=== PATIENT | male | born 1980 | race Caucasian/White ===

== ENCOUNTER 2023-08-19 22:40 | Emergency (ER) | payer SELFPAY ==
[2023-08-19 22:43] VITALS: BP 134/81; PULSE 81; RESP 16; TEMP 36.8; O2SAT 98; BMI 22.4
--- NOTE | 2023-08-19 23:01 | XRR_ITS ---
PROCEDURE INFORMATION: Exam: XR Lumbosacral Spine Exam date and time: 08/19/2023 11:05 PM Age: 43 years old Clinical indication: Other: Pain; Additional info: Atraumatic low back pain x2 days TECHNIQUE: Imaging protocol: Radiologic exam of the lumbosacral spine. Views: 2 or 3 views. COMPARISON: No relevant prior studies available. FINDINGS: Bones/joints: Normal. No acute fracture. Normal alignment. Soft tissues: Unremarkable. XR/XR lumbar spine 2-3V* [id number] IMPRESSION: No acute findings.
--- NOTE | 2023-08-19 23:03 | W.ED.BACK ---
HPI - Back Pain/Injury General: Chief Complaint: Back Pain/Injury Stated Complaint: back pain Time Seen by Provider: 08/19/23 22:48 Source: patient Mode of arrival: ambulatory Limitations: no limitations History of Present Illness: Patient is a 43-year-old male who presents to the emergency department from police custody due to low back pain for the past 2 days. 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 He notes that he has not been able to move much due to the pain, however he is not reporting any red flag back symptoms such as bowel or bladder incontinence or saddle anesthesia. Additionally he states the pain does not radiate, however it is 10/10 at this time. It has been constant since onset and is sharp. Has not taken anything for the pain. MD elicited complaint: back pain Onset (ago): day(s) Timing: constant Severity: severe Pain scale (0-10): 10 Similar Symptoms Previously: Yes Quality: sharp Location: lumbar spine, right lower back and left lower back Radiation: none Exacerbating factors: movement Relieving factors: none Context: bending Associated symptoms: Reports no associated symptoms; Deny abdominal pain, chills, dysuria, fatigue, fever(s), nausea or vomiting Work related injury: No Review of Systems General: Reports: 10 or more systems reviewed and unremarkable except in HPI and below Const: Denies: fever(s), chills or fatigue Eyes: Denies: change in vision ENMT: Denies: throat pain, ear or mastoid pain or nasal discharge Card: Denies: chest pain, palpitations, swelling of feet/ankles or lightheadedness Resp: Denies: dyspnea, productive cough or wheezing GI: Denies: abdominal pain, nausea, vomiting, diarrhea or constipation : Denies: flank pain, difficulty urinating, dysuria or urinary frequency Musc: Reports: back pain and limited range of motion; Denies: neck pain, extremity pain or joint pain Skin/Breast: Denies: rash Neuro: Denies: headache(s), numbness in extremities or weakness in extremities Physical Exam Const: COMMON NORMALS: no acute distress, patient oriented x3 and no limitations GENERAL APPEARANCE: cooperative and well developed ORIENTATION/CONSCIOUSNESS: Yes awake, Yes oriented to person, Yes oriented to place and Yes oriented to time HENMT: COMMON NORMALS: normocephalic, atraumatic and hearing grossly normal bilaterally HEAD & SCALP: normocephalic and atraumatic Eye: COMMON NORMALS: Equal, round and reactive pupils present, EOMs intact bilaterally and conjunctivae normal CONJUNCTIVA: Yes conjunctivae normal PUPIL: Yes Equal, round and reactive pupils present Neck/C-Spine: COMMON NORMALS: full ROM, supple and no JVD Resp: COMMON NORMALS: normal respiratory effort, No retractions, No use of accessory muscles and clear to auscultation bilaterally AUSCULTATION: clear to auscultation bilaterally Cardio: COMMON NORMALS: no JVD, regular rate, regular rhythm, No clicks present (Cardio), No murmurs present (Cardio) and No rub (Cardio) RATE: regular rate RHYTHM: regular rhythm Back/Pelvis: COMMON NORMALS: thoracic and lumbar spine normal to inspection OTHER: Reproducible tenderness to palpation of the lower lumbar spine. There is also tenderness to palpation of the bilateral paralumbar muscles, no active spasming noted. Range of motion is limited and there is pain with rotation of the lower back. Extremity: COMMON NORMALS: normal to inspection, full ROM, capillary refill normal and no clubbing, cyanosis or edema Neuro: COMMON NORMALS: patient oriented x3, moves all extremities, no focal motor deficits, no sensory deficits noted and deep tendon reflexes 2+ bilaterally SENSORIUM/ORIENTATION: Yes oriented to person, Yes oriented to place and Yes oriented to time Psych: COMMON NORMALS: mental status grossly normal and Normal thought process present THOUGHT PROCESS: Normal thought process present Skin: COMMON NORMALS: no rashes or lesions noted GENERAL SKIN EXAM: no rashes or lesions noted Course Vital Signs: Vital signs: Vital Signs Temperature 98.2 F 08/19/23 22:43 Pulse Rate 81 08/19/23 22:43 Respiratory Rate 16 08/19/23 22:43 Blood Pressure 134/81 08/19/23 22:43 Pulse Oximetry 98 08/19/23 22:43 Oxygen Delivery Me thod Room Air 08/19/23 22:43 MDM - Back Pain/Injury Medical Decision Making Patient brought in by police from snf due to 2 days of low back pain, has been constant. No medications at this time. Back pain was atraumatic in nature, did not report any red flag back symptoms. History of similar from working construction. His vitals were unremarkable, physical exam did reveal some tenderness to palpation of the low back. X-ray performed did not demonstrate any acute fractures or significant disc space narrowing. After receiving muscle relaxer, Toradol, and steroid, he notes that he is actually feeling quite better. Will send prescription to pharmacy to take over the next 5 days, and he will be discharged back to [facility]. Reasons to return discussed. XR interpretation done by ED provider, pending radiology final review Discharge Plan Discharge Patient Disposition: Home Clinical Impression: Strain of lumbar region Qualifiers: Encounter type: initial encounter Qualified Code(s): S39.012A - Strain of muscle, fascia and tendon of lower back, initial encounter Condition: Stable Prescriptions: New cyclobenzaprine 10 mg tablet 10 mg PO TID Qty: 15 0RF prednisone 20 mg tablet 60 mg PO ONCE 5 Days Qty: 15 0RF ketorolac 10 mg tablet 10 mg PO Q8H PRN (Reason: pain) Qty: 15 0RF Discharge Orders: Discharge ED (Routine); Ordered 08/19/23 Ordered By: Alvin Stewart Discharge Diet: Usual diet Discharge Activity: Increase activity as tolerated Patient Instructions: Low Back Strain (ED) Activity Restrictions/Additional Instructions: Take medications as prescribed. Gentle range of motion exercises as tolerated. May apply ice for added relief. Please return with any new or worsening and follow-up with primary care as needed. Coding Level of Care Code ED Finish Carpenter for [facility]
[2023-08-19] MEDS: dexamethasone 10 mg/mL INJ IM (23:12)
[2023-08-19] MEDS: ketorolac 60 mg/2 mL INJ IM (23:15)
[2023-08-19] MEDS: methocarbamol 750 mg Tablet PO (23:16)
[2023-08-19 23:53] VITALS: BP 117/78; PULSE 70; O2SAT 95
== END 2023-08-19 23:54 | disposition home or self-care (01) ==
PROVIDERS: Emergency Provider Physician Assistant
DX: S39.012A Strain of muscle, fascia and tendon of lower back, initial encounter (principal); X50.1XXA Overexertion from prolonged static or awkward postures, initial encounter
CPT/HCPCS: 72100; 96372; 99284; J1100; J1885